=== PATIENT | female | born 1965 | race Caucasian/White ===

== ENCOUNTER → 2020-11-26 04:04 | Outpatient (CLI) | payer OTHER, SELFPAY ==
[2020-11-26 21:09] LABS: SARS-CoV-2 RNA PCR Negative
== END ==
PROVIDERS: PCP Internal Medicine; Visit Provider Clinical Nurse Specialist
DX: R05 Cough (principal); Z20.822 Contact with and (suspected) exposure to COVID-19
CPT/HCPCS: C9803; U0003; U0005

== ENCOUNTER 2021-11-24 00:09 | Day surgery (SDC) | payer OTHER, SELFPAY ==
[2021-09-12 12:50] VITALS: BMI 25.0
--- NOTE | 2021-11-06 13:20 | PC.NURSE ---
Completed patients pre-procedure phone call. Updated patient with new date and times. Patient agrees to these changes. Patient denies any changes to allergies, medications, or health history. Patient has no questions at this time.
--- NOTE | 2021-11-24 07:46 | WPDANESEPPF ---
Anes - Initial Pre Proc Eval Procedure: Operation Date: 11/24/21 09:30 Proposed Procedures p Screening Colonoscopy - Puma Ruelas MD Date/Time: 11/24/21 07:46 Surgeon: Puma Ruelas MD Pre Op Diagnosis: neoplasm screening Patient Data Age: 56 Gender: F Height: 1.6 m Weight: 64 kg Allergies Allergy/AdvReac Type Severity Reaction Status Date / Time sulfamethizole Allergy Unknown Skin Verified 11/24/21 08:35 Reaction Home Medications Medication Instructions Recorded Confirmed Type cetirizine 10 mg tablet (Zyrtec) 10 mg PO DAILY PRN Allergy Symptoms 02/01/20 09/12/21 History fluticasone propionate 50 1 spray intranasal Q12H #16 grams 11/25/20 09/12/21 Rx mcg/actuation nasal spray,suspension (Flonase Allergy Relief) cyclosporine 0.05 % eye drops in a 1 drp EACH EYE DAILY 09/12/21 09/12/21 History dropperette (Restasis) sodium sul 1.479 gram-potas ch See Rx Instructions PO .COMPLEX 09/26/21 Rx 0.188 gram-magnes sul 0.225 gram #24 tabs tablet (Sutab) Patient hx anesthesia problems: none Family hx anesthesia problems: none Results Review: All pre-operative results and documents have been reviewed as part of the pre-operative evaluation. [facility] Past Medical History Medical History Personal history of tobacco use Surgical History Surgical History H/O section Family History Family History Grandparent Diabetes mellitus Mother Patient's mother is in good health Father Patient's father is in good health Other Family history of cardiovascular disease Social History Social History Smoking status: Former smoker Tobacco type: cigarettes Second hand tobacco smoke exposure: No Smoking end date: 04/12/02 Alcohol intake: current Alcohol use details: 2x monthly Living arrangements: with family Spiritual care concerns: No Anes - Eval Final PreProcedure Day of Procedure 11/24/21 07:46 Patient weight: overweight Heart: regular rate and rhythm Lungs: clear to auscultation Airway: Mallampati scale class II Neurological: alert and oriented Last oral intake: >/= 8 hours ASA classification: II Emergent: no Anesthetic plan: proceed Anesthesia type and monitoring: general GIVS and standard monitoring Results Review: All pre-operative results and documents have been reviewed as part of the pre-operative evaluation. Informed Consent: The patient's anesthetic plan and its attendant risks and benefits were discussed with the patient/family/POA. Questions were solicited and answers provided to the satisfaction of the patient/family/POA.
[2021-11-24 08:36] VITALS: BP 116/71; PULSE 73; RESP 18; TEMP 36.2; O2SAT 100
[2021-11-24] MEDS: LACTATED RINGERS 1,000 ML 150 ML IV CONT (08:44)
--- NOTE | 2021-11-24 09:04 | PM.HPGS ---
History of Present Illness History of Present Illness Consent: Risks, benefits, and alternatives have been discussed and questions answered. Patient agrees to proceed with procedure. Chief complaint: neoplasm screening Narrative: Trina Muñoz is a 56 year old female here for first screening colonoscopy Review of Systems Constitutional: Constitutional: Denies headache(s) and Denies weakness Eyes: Eyes: Denies blurry vision ENT: Reports Normal hearing present, Denies headache(s) and Denies neck pain Cardiovascular: Cardiovascular: Denies chest pain and Denies dyspnea Respiratory: Respiratory: Denies dyspnea Gastrointestinal: Gastrointestinal: Reports no additional gastrointestinal complaints Genitourinary: Genitourinary: Denies dysuria Musculoskeletal: Musculoskeletal: Denies neck pain Integumentary/Breasts: Skin/Breast: Denies dry skin Neurologic: Reports Normal hearing present, Denies headache(s) and Denies weakness Psychiatric: Psychiatric: Denies anxiety Endocrine: Endocrine: Denies change in body appearance Hematologic/Lymphatic: Hematologic/Lymphatic: Denies easy bleeding Allergic/Immunologic: Allergic/Immunologic: Denies urticaria PMFSH Past Medical History Medical History Personal history of tobacco use Surgical History Surgical History H/O section Family History Family History Grandparent Diabetes mellitus Mother Patient's mother is in good health Father Patient's father is in good health Other Family history of cardiovascular disease Social History Social History Smoking status: Former smoker Tobacco type: cigarettes Second hand tobacco smoke exposure: No Smoking end date: 04/12/02 Alcohol intake: current Alcohol use details: 2x monthly Living arrangements: with family Spiritual care concerns: No Meds Home Medications and Allergies Home Medications Medication Instructions Recorded Confirmed Type cetirizine 10 mg tablet (Zyrtec) 10 mg PO DAILY PRN Allergy Symptoms 02/01/20 09/12/21 History fluticasone propionate 50 1 spray intranasal Q12H #16 grams 11/25/20 09/12/21 Rx mcg/actuation nasal spray,suspension (Flonase Allergy Relief) cyclosporine 0.05 % eye drops in a 1 drp EACH EYE DAILY 09/12/21 09/12/21 History dropperette (Restasis) sodium sul 1.479 gram-potas ch See Rx Instructions PO .COMPLEX 09/26/21 Rx 0.188 gram-magnes sul 0.225 gram #24 tabs tablet (Sutab) Allergies Allergy/AdvReac Type Severity Reaction Status Date / Time sulfamethizole Allergy Unknown Skin Verified 11/24/21 08:35 Reaction Vital Signs Vital Signs - 24 hr 11/24/21 08:36 Temperature 97.1 F L Pulse Rate 73 Respiratory Rate 18 Blood Pressure 116/71 Pulse Oximetry 100 Oxygen Delivery Room Air Exam Const: General: comfortable and no acute distress HENMT: General nose exam: Normal nares present Eyes: General: appearance normal, both eyes and all related structures Neck: Neck: no JVD Resp: Auscultation: clear to auscultation bilaterally Cardio: Rate: regular rate Rhythm: regular rhythm GI: Inspection: non-distended GI Palp: Yes Soft to palpation Skin: General skin exam: normal color Neuro: General: gait normal Speech: normal speech Extrem: General: normal to inspection Psych: Mental Status: mental status grossly normal Assessment and Plan Assessment and plan (1) Screening for colon cancer: Code(s): Z12.11 - Encounter for screening for malignant neoplasm of colon Status: Acute Assessment and Plan: colonoscopy
[2021-11-24 09:25] VITALS: BP 103/63; PULSE 79; RESP 16; O2SAT 100
[2021-11-24 09:35] VITALS: BP 104/77; PULSE 72; RESP 16; O2SAT 100
[2021-11-24 09:45] VITALS: BP 104/76; PULSE 66; RESP 13; O2SAT 100
== END 2021-11-24 10:03 | disposition home or self-care (01) ==
PROVIDERS: PCP Internal Medicine; Visit Provider Internal Medicine Gastroenterology
PROC: 0DJD8ZZ Inspection of Lower Intestinal Tract, Via Natural or Artificial Opening Endoscopic (ICD-10-PCS; CPT 45378; principal; 2021-11-24 09:30)
DX: Z12.11 Encounter for screening for malignant neoplasm of colon (principal); K64.8 Other hemorrhoids; Z87.891 Personal history of nicotine dependence
CPT/HCPCS: 45378; J2704; J7120

== ENCOUNTER 2023-01-14 10:40 | Emergency (ER) | payer OTHER, SELFPAY ==
--- NOTE | 2023-01-14 10:46 | ED.URI ---
HPI - URI/Sore Throat General Chief Complaint: Upper Respiratory Infection Stated Complaint: Cough,Congestion,Headache Time Seen by Provider: 01/14/23 10:46 Source: patient Mode of arrival: ambulatory Limitations: no limitations History of Present Illness HPI Narrative: Patient is a 57-year-old female who presents with cough, congestion and headache since Wednesday. Patient states cough is keeping her up at night and it is productive. She denies any fever, chills, nausea, vomiting, diarrhea, sore throat. 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 Patient has been taking [id number] Robitussin with no relief. Denies any history of smoking, asthma, bronchitis or pneumonia. Does states she has seasonal allergies but does not take any daily allergy medicine. Related Data Allergies Allergy/AdvReac Type Severity Reaction Status Date / Time sulfamethizole Allergy Unknown Skin Verified 01/14/23 10:55 Reaction Review of Systems Review of Systems: All systems reviewed & are unremarkable except as noted in HPI and below Constitutional: Constitutional: Denies body ache(s), Denies chills, Denies fatigue, Denies fever(s), Reports headache(s), Denies malaise and Denies weakness Eyes: Eyes: Denies blurry vision, Denies itchy eyes and Denies loss of vision ENT: Denies otalgia, Denies headache(s), Reports nasal congestion, Denies sinus pain and Denies sore throat Cardiovascular: Cardiovascular: Denies chest pain, Denies irregular heart rhythm and Denies dyspnea Respiratory: Respiratory: Reports cough and Denies dyspnea Gastrointestinal: Gastrointestinal: Denies abdominal pain, Denies diarrhea, Denies nausea and Denies vomiting Musculoskeletal: Musculoskeletal: Denies back pain, Denies myalgias and Denies arthralgias Integumentary/Breasts: Skin/Breast: Denies pruritus and Denies rash Neurologic: Reports headache(s), Denies loss of vision and Denies weakness Psychiatric: Psychiatric: Reports no additional psychiatric complaints Endocrine: Endocrine: Denies fatigue Allergic/Immunologic: Allergic/Immunologic: Denies itchy eyes PMFSH Past Medical History Medical History Personal history of tobacco use Surgical History Surgical History H/O section Family History Family History Grandparent Diabetes mellitus Mother Patient's mother is in good health Father Patient's father is in good health Other Family history of cardiovascular disease Social History Social History Smoking status: Former smoker Tobacco type: cigarettes Second hand tobacco smoke exposure: No Smoking end date: 04/12/02 Alcohol intake: current Alcohol use details: 2x monthly Living arrangements: with family Spiritual care concerns: No Comments At time of signature, agree with nursing past medical, surgical, social and family history. There is no relevant family history pertinent to the presenting complaint. Exam Const: General: cooperative, healthy appearing, comfortable, no acute distress and well nourished Nutritional Appearance: well nourished Orientation/consciousness: patient oriented x3 Limitations: no limitations HENMT: Head: normal to inspection, normocephalic and atraumatic Ears: hearing grossly normal bilaterally, external ears normal, TM's normal bilaterally, EAC's normal and no periauricular adenopathy Face/Nose/Sinus: Normal external nose present, Normal nasal mucous membranes and turbinates present, normal facial exam, sinuses nontender and face symmetric Face and sinus: normal facial exam, sinuses nontender and face symmetric Mouth: Yes Normal oral and palatal mucosa present, Yes lip normal, Yes tongue normal, Yes Normal salivary glands and ducts present, Yes oropharynx
[2023-01-14 10:48] VITALS: BP 97/73; PULSE 72; RESP 18; TEMP 36.5; O2SAT 99
== END 2023-01-14 11:06 | disposition home or self-care (01) ==
PROVIDERS: Emergency Provider Nurse Practitioner Family; PCP Internal Medicine
DX: J40 Bronchitis, not specified as acute or chronic (principal); Z87.891 Personal history of nicotine dependence
CPT/HCPCS: 99213; G0463

== ENCOUNTER 2023-01-20 10:34 | Emergency (ER) | payer OTHER, SELFPAY ==
--- NOTE | ~2023-01-20 | XR_ITS ---
EXAMINATION: XR chest 2V 01/20/2023 10:56 INDICATION: Cough for 11 days PROCEDURE: 2 view chest COMPARISON: 01/23/2015 FINDINGS: The lungs are clear. The cardiomediastinal silhouette is within normal limits. There are no pleural effusions. There is no pneumothorax suspected. IMPRESSION: 1: NO ACUTE CARDIOPULMONARY DISEASE. Reviewed, dictated and finalized at location B.
--- NOTE | 2023-01-20 10:43 | ED.URI ---
HPI - URI/Sore Throat General Chief Complaint: Upper Respiratory Infection Stated Complaint: Wheezing,Cough,Lethargic Time Seen by Provider: 01/20/23 10:42 Source: patient, RN notes reviewed and old records reviewed Mode of arrival: ambulatory Limitations: no limitations History of Present Illness HPI Narrative: 57 year old female who presents to express care with complaints of continued cough which is productive, wheezing with some shortness of breath with exertion,headache and fatigue. Patient was seen on the of this month for her symptoms and was prescribed Steroid, inhaler and also cough syrup but states that symptoms continue and she remains fatigued. Patient reports that she is expectorating yellowish mucous and can't get rid of cough. Patient states that she went to the nurse at her employment today and was told that she was wheezing. Initial symptoms have been since the 09 of January. MD elicited complaint: cough and other (Wheezing , fatigue) Onset (ago): day(s) (11-12 days) Consistency: constant Severity: moderate Able to tolerate fluids by mouth: Yes Exacerbating factors: exertion Associated symptoms: headache, cough, shortness of breath (exertion) and other (wheezing) Treatments prior to arrival: other (Prednisone, prescription cough medication and inhaler) Related Data Home Medications Medication Instructions Recorded Confirmed conjugated estrogens 0.625 mg/gram 0.625 mg topical DIRECTED 01/20/23 01/20/23 vaginal cream (Premarin) Allergies Allergy/AdvReac Type Severity Reaction Status Date / Time sulfamethizole Allergy Unknown Skin Verified 01/20/23 10:43 Reaction Review of Systems Review of Systems: CONSTITUTIONAL: Denies malaise, chills, sweats, or fever. EYES: Denies visual changes, redness, or discharge. ENT: Reports no rhinorrhea, congestion, sinus pain, no otalgia and no sore throat. CARDIOVASCULAR: Denies chest pain, palpitations, or edema. RESPIRATORY: Reports cough.? Denies acute dyspnea, reports wheezing, VOSS GASTROINTESTINAL: Denies abdominal pain, nausea, vomiting, diarrhea SKIN: Denies rash or itching. MUSCULOSKELETAL: Denies myalgia. NEUROLOGIC: Reports headache and fatigue All systems reviewed & are unremarkable except as noted in HPI and below PMFSH Past Medical History Medical History Eczema Personal history of tobacco use quit 2002 Surgical History Surgical History (Updated 01/20/23 @ 11:50 by Sherine Nixon NP) H/O section Hx of spinal surgery Family History Family History Grandparent Diabetes mellitus Mother Patient's mother is in good health Father Patient's father is in good health Other Family history of cardiovascular disease Social History Social History Smoking status: Former smoker Tobacco type: cigarettes Second hand tobacco smoke exposure: No Smoking end date: 04/12/02 Alcohol intake: current Alcohol use details: 2x monthly Living arrangements: with family Spiritual care concerns: No Comments At time of signature, agree with nursing past medical, surgical, social and family history. There is no relevant family history pertinent to the presenting complaint Exam Narrative: GENERAL: Well-appearing, well-nourished, and in no acute distress. HEAD: Normocephalic EYES: PERRLA, conjunctivae clear ENT: Nares clear, turbinates edematous and erythematous, clear discharge. Mucous membranes moist. TM pearly preciado with dull light reflex bilaterally; no tragal tenderness. Oropharynx erythematous without lesions. Tonsils not enlarged and without exudate, no drooling, no hoarseness, no trismus, uvula midline. NECK: Supple. No lymphadenopathy CHEST: Scattered wheezing to auscultation, breath sounds equal. Positive for wheezing,no rhonchi, rales, or stridor. No respiratory distres
[2023-01-20 10:44] VITALS: BP 99/53; PULSE 77; RESP 16; TEMP 36.5; O2SAT 100
== END 2023-01-20 11:26 | disposition home or self-care (01) ==
PROVIDERS: Emergency Provider Registered Nurse; PCP Internal Medicine
DX: J40 Bronchitis, not specified as acute or chronic (principal); Z87.891 Personal history of nicotine dependence
CPT/HCPCS: 71046; 99213; G0463

== ENCOUNTER 2023-02-18 14:57 | Outpatient (CLI) | payer OTHER, SELFPAY ==
--- NOTE | ~2023-02-18 | MM_ITS ---
EXAMINATION: MM screening [facility] BI w linda HISTORY: Screening TECHNIQUE: Craniocaudal and mediolateral oblique 3-D tomosynthesis images were obtained and synthetic 2-D images were generated. CAD analysis was submitted and interpreted. COMPARISON: No prior mammogram is available for comparison at this institution. BREAST PARENCHYMAL COMPOSITION: There are scattered areas of fibroglandular density. FINDINGS: There is a dense 7 mm mass in the right axilla. There is a cluster of indeterminate calcifi cations in the upper outer quadrant of the left breast. IMPRESSION: 1. Right breast mass involving the axilla measuring 7 mm. Clustered indeterminate left breast calcifi cations, upper outer quadrant. 2. Additional mammographic views and possible breast ultrasound are recommended. BI-RADS Category 0: Incomplete: Needs additional imaging evaluation. Reviewed, dictated and finalized at location A. ORY HELPER IMPRESSION: 1. Right breast mass involving the axilla measuring 7 mm. Clustered indetermina te left breast calcifications, upper outer quadrant. 2. Additional mammographic views and possible breast ultrasound are recommended . BI-RADS Category 0: Incomplete: Needs additional imaging evaluation.
--- NOTE | ~2023-02-18 | DEXA_ITS ---
Bone Density Report Name: JAZMIN BLANK Age: 57 Sex: Female Ethnicity: White Date of : 1965 Indication: postmenopausal; screening for osteoporosis; Referring Provider: ANNETTE, ZOFIA Virgen Study: Bone densitometry was performed. Exam Date: February 18, 2023 Accession number: [id number] Bone Density: Region BMD T-score Z-score Classification AP Spine(L1-L4) 1.157 1.0 2.1 Normal Femoral Neck (Left) 0.727 -1.1 0.0 Osteopenia Total Hip (Left) 0.939 0.0 0.7 Normal Femoral Neck (Right) 0.667 -1.6 -0.6 Osteopenia Total Hip (Right) 0.905 -0.3 0.4 Normal Total Hip Mean 0.922 -0.2 0.6 Normal World Health Organization criteria for BMD impression classify patients as: Normal (T-score at or above -1.0), Osteopenia (T-score between -1.0 and -2.5), or Osteoporosis (T-score at or below -2.5). 10-year Fracture Risk(1): Major Osteoporotic Fracture 7.1% Hip Fracture 0.6% Reported Risk Factors: [place] (), Neck BMD=0.667, BMI=25.2 (1) FRAX(R) Version 3.08. Fracture probability calculated for an untreated patient. Fracture probability may be lower if the patient has received treatment. Clinical Information Provided by Patient: Patient maximum height was 63.5 Menopause Age: 44 Drinks caffeinated beverages Onset of menses at age 14 Number of children 2 Impression: The patient has low bone mass, based on the Right Femoral Neck T-score. The patient has an estimated ten-year risk of hip fracture of 0.6% and an estimated ten-year risk of major fracture of 7.1%, based on the WHO FRAX algorithm. Discussion: BONE DENSITY IS LOW AT ONE OR MORE SKELETAL SITES. This patient's lowest T-score is low at one or more skeletal sites. It meets the World Health Organization's (WHO) criteria for ?low bone mass? (T-score between -1.0 and -2.5). The patient's 10-year risk of fracture as calculated by FRAX is less than the threshold where pharmacological therapy is recommended by the National Osteoporosis Foundation (NOF). However, all treatment decisions require clinical judgment and consideration of individual patient factors, including patient preferences, comorbidities, previous drug use, risk factors not captured in the FRAX model (e.g., frailty, falls, vitamin D deficiency, increased bone turnover, interval significant decline in bone density) and possible under or overestimation of fracture risk by FRAX. The patient should follow a healthful lifestyle (good nutrition with adequate calcium and vitamin D, and appropriate weight-bearing exercise). Follow-Up: Consider repeating this study in 2 to 3 years to reassess this patient's status, or sooner if there is some new clinical indication. Reported by: CHRIS on 02/18/2023 3:35:00 PM. Review
== END 2023-02-18 14:58 | disposition home or self-care (01) ==
PROVIDERS: PCP Internal Medicine; Visit Provider Nurse Practitioner Obstetrics & Gynecology
DX: Z12.31 Encounter for screening mammogram for malignant neoplasm of breast (principal); Z78.0 Asymptomatic menopausal state; R92.8 Other abnormal and inconclusive findings on diagnostic imaging of breast; M85.89 Other specified disorders of bone density and structure, multiple sites
CPT/HCPCS: 77063; 77067; 77080

== ENCOUNTER 2023-08-06 12:04 | Emergency (ER) | payer OTHER, SELFPAY ==
--- NOTE | ~2023-08-06 | US_ITS ---
EXAMINATION:US venous doppler LE RT INDICATION:Right calf pain TECHNIQUE: Multiple grayscale, color flow and Doppler images of the right lower extremity deep venous systems were obtained and reviewed. COMPARISON:No prior studies FINDINGS: The common femoral, superficial femoral and popliteal veins demonstrate normal respiratory variation, augmentation and compressibility. Color flow is also seen within the posterior tibial, pe roneal, greater saphenous and profunda veins. IMPRESSION: 1: No lower extremity deep venous thrombosis. Reviewed, dictated and finalized at location B.
--- NOTE | ~2023-08-06 | XR_ITS ---
EXAMINATION: XR knee RT 3V DATE: 08/06/2023 12:34 INDICATION: Chronic right knee pain. TECHNIQUE: 3 views of right knee were obtained. COMPARISON: None. FINDINGS: Bone alignment is normal. No fracture. There is mild tricompartmental osteoarthritis charac terized by tiny osteophytes. No knee joint effusion. IMPRESSION: 1. Mild right knee osteoarthritis. Reviewed, dictated and finalized at location A.
[2023-08-06 12:12] VITALS: BP 102/71; PULSE 76; RESP 18; TEMP 36.6; O2SAT 97
--- NOTE | 2023-08-06 13:30 | ED.LOWEXIN ---
HPI - Extremity Injury (Lower) General Chief Complaint: Extremity Injury, Lower Stated Complaint: knee pain Time Seen by Provider: 08/06/23 12:14 History of Present Illness HPI Narrative: Patient is a 58 year old female with history of chronic left sided sciatic back pain here with right knee pain. She notes pain has been intermittent for the last month. She saw chiropractor 3-4 weeks ago who performed an x-ray and told her that her knee had ?shifted?. She states that they performed a aggressive manipulation maneuver by a hitting the knee strongly and had some mild relief of pain immediately returned upon walking. She denies any falls. Her back pain is not any worse than usual. She notes that the pain currently is located in her knee, worse with walking and radiates down into her calf. No prior surgeries on this knee. She has not taken tylenol or ibuprofen for this pain today. She has been wearing a knee brace at home which seems to help somewhat. No recent travel, no history of PE or DVT, no recent surgeries. No fever, chills, color change of her leg. Related Data Home Medications Medication Instructions Recorded Confirmed conjugated estrogens 0.625 mg/gram 0.625 mg topical DIRECTED 01/20/23 04/15/23 vaginal cream (Premarin) Allergies Allergy/AdvReac Type Severity Reaction Status Date / Time sulfamethizole Allergy Unknown Skin Verified 08/06/23 12:05 Reaction Review of Systems Review of Systems: All systems reviewed & are unremarkable except as noted in HPI and below PMFSH Past Medical History Medical History Eczema Personal history of tobacco use quit 2002 Surgical History Surgical History (Updated 01/20/23 @ 11:50 by Sherine Nixon NP) H/O section Hx of spinal surgery Family History Family History Grandparent Diabetes mellitus Mother Patient's mother is in good health Father Patient's father is in good health Other Family history of cardiovascular disease Social History Social History (Updated 04/14/23 @ 15:20 by Zee Melgar CMA) Smoking status: Former smoker Tobacco type: cigarettes Second hand tobacco smoke exposure: No Smoking end date: 04/12/02 Alcohol intake: current Alcohol use details: 2x monthly Do You Feel Safe in your Home?: Yes Lack of Transportation: No Lack of Food: Never True Current Housing: I Have Housing Concerned About Future Housing: No Difficulty Paying Gas/Electric Bills: YES Difficulty Paying for Meds: No Currently Unemployed: No Education: Associate Degree Difficulty w/ Childcare or Family Care: No Living arrangements: with family Spiritual care concerns: No Exam Narrative: GENERAL: Well-appearing, well-nourished, and in no acute distress. HEAD: Normocephalic, atraumatic. EYES: PERRLA and EOMI. ENT: Nares clear. Mucous membranes moist. NECK: Supple. CHEST: Clear to auscultation. No respiratory distress. HEART: Regular rate and rhythm. Normal peripheral pulses. ABDOMEN: Soft, nontender, nondistended. EXTREMITIES: Bilateral hips nontender. Normal range of motion of bilateral hips. Patient has no knee tenderness at rest however pain is elicited with passive and active range of motion with flexion of the knee. She endorses the pain is located over the anterior portion of the knee and has mild reduced range of motion due to this pain. She additionally has some calf tenderness on this leg. Strong DP pulse present with normal sensation and strength of the leg. Normal color and perfusion of the leg appreciated. SKIN: Warm, dry, no rash. NEURO: No focal deficits. Alert and oriented x3. PSYCH: Normal mood and affect. Course Course Emergency Course: Chart review performed. Patient is here with right knee pain. She was told by a chiropractor that it looks off . Triage vitals normal. Patient seen evaluated, nontoxic appearing.
[2023-08-06] MEDS: ACETAMINOPHEN 500 MG TABLET 1000 MG PO (14:04)
[2023-08-06 15:01] VITALS: BP 150/90; PULSE 63; RESP 18; O2SAT 98
== END 2023-08-06 15:02 | disposition home or self-care (01) ==
PROVIDERS: Emergency Provider Student in an Organized Health Care Education/Training Program; PCP Internal Medicine
DX: M25.561 Pain in right knee (principal); Z87.891 Personal history of nicotine dependence; M17.11 Unilateral primary osteoarthritis, right knee
CPT/HCPCS: 73562; 93971; 99284; A9270

== ENCOUNTER 2023-09-29 09:35 | Outpatient (CLI) | payer OTHER, SELFPAY ==
[2023-09-29 12:45] LABS: Basophils Absolute Auto 0.1 K/mm3 (0.0-0.1); Basophils Percent Auto 1.5 % (0.2-1.2); Eosinophils Absolute Auto 0.1 K/mm3 (0-0.3); Eosinophils Percent Auto 2.4 % (0-4.4); Hematocrit 36.1 % (37.0-47.0); Hemoglobin 11.9 g/dL (12.0-15.0); Immature Granulocyte Absolute 0.02 K/mm3 (0.00-0.031); Immature Granulocyte Percent A 0.4 % (0-0.5); Lymphocytes Absolute Auto 1.93 K/mm3 (0.9-3.2); Lymphocytes Percent Auto 42.3 % (18.3-44.2); Mean Corpuscular Hemoglobin 30.9 pg (26-34); Mean Corpuscular Volume 93.8 fl (80-100); Mean Platelet Volume 11.7 fl (7.4-10.4); Monocytes Absolute Auto 0.3 K/mm3 (0.1-0.6); Monocytes Percent Auto 6.6 % (2.6-8.5); Neutrophils Absolute Auto 2.1 K/mm3 (1.3-6.7); Neutrophils Percent Auto 46.8 % (45.5-73.1); Platelet Count Result 238 k/mm3 (150-375); Red Blood Count 3.85 M/mm3 (4.2-5.4); Red Cell Distribution Width 14.1 % (11.5-14.5); White Blood Count 4.6 K/mm3 (4.5-10.0)
[2023-09-29 13:10] LABS: Alanine Aminotransferase 15 U/L (6-35); Albumin Level 4.4 g/dL (3.5-5.1); Alkaline Phosphatase 50 U/L (38-126); Anion Gap 6 mmol/L (4-12); Aspartate Amino Transferase 40 U/L (14-36); Bilirubin,Total 0.9 mg/dL (0.2-1.3); Blood Urea Nitrogen 18 mg/dL (7-17); Calcium 9.2 mg/dL (8.4-10.2); Carbon Dioxide 26 mmol/L (22-30); Chloride 108 mmol/L (98-107); Cholesterol 267 mg/dL (0-200); Estimated Glomerular Filt Rate > 60; Glucose 75 mg/dL (65-110); HDL Direct 99 mg/dL; Potassium 4.2 mmol/L (3.4-5.0); Sodium 140 mmol/L (137-145); Triglycerides 51 mg/dL (<150)
[2023-09-29 13:21] LABS: LDL Cholesterol Direct 132 mg/dL
[2023-09-29 14:21] LABS: Vitamin D 25 Hydroxy 36.5 ng/mL
== END 2023-09-29 09:36 | disposition home or self-care (01) ==
PROVIDERS: PCP Internal Medicine
DX: Z13.220 Encounter for screening for lipoid disorders (principal); E55.9 Vitamin D deficiency, unspecified; Z13.228 Encounter for screening for other metabolic disorders
CPT/HCPCS: 36415; 80053; 80061; 82306; 85025

== ENCOUNTER 2025-03-20 14:03 | Emergency (ER) | payer OTHER, SELFPAY ==
[2025-03-20 14:17] VITALS: BP 106/54; PULSE 72; RESP 16; TEMP 35.9; O2SAT 100
--- NOTE | 2025-03-20 14:24 | ED.URI ---
HPI - URI/Sore Throat General Chief Complaint: Upper Respiratory Infection Stated Complaint: COUGH/CONGESTION/DIARRHEA Time Seen by Provider: 03/20/25 14:15 Source: patient, RN notes reviewed and old records reviewed Mode of arrival: ambulatory Limitations: no limitations History of Present Illness HPI Narrative: 59-year-old female presents to the [facility] with cold symptoms, headache, S stuffy nose, cough, drainage since Wednesday. Patient reports that she started with some diarrhea today. Denies any abdominal pain, chest pain, shortness of breath. Denies chills or fevers. States for the sinus congestion she has taken mucus relief an Advil. No treatment for the diarrhea. tolerating fluids without issue Onset (ago): day(s) (2-3) Treatments prior to arrival: cold medicine Related Data Home Medications ?Medication ?Instructions ?Recorded ?Confirmed ?Last Taken ?Type conjugated estrogens 0.625 mg/gram 0.625 mg topical DIRECTED 01/20/23 08/31/23 Unknown History vaginal cream (Premarin) cyclosporine 0.05 % eye drops in a drp EACH EYE PRN 08/31/23 08/31/23 Unknown History dropperette Allergies Allergy/AdvReac Type Severity Reaction Status Date / Time sulfamethizole Allergy Unknown Skin Verified 03/20/25 14:21 Reaction prednisone AdvReac Intermediate hair loss Verified 03/20/25 14:21 Review of Systems Review of Systems: All systems reviewed & are unremarkable except as noted in HPI and below Constitutional: Constitutional: Reports no additional constitutional complaints ENT: Reports as per HPI and Reports sore throat Cardiovascular: Cardiovascular: Reports no additional cardiovascular complaints, Denies chest pain and Denies dyspnea Respiratory: Respiratory: Reports as per HPI, Denies chest congestion, Reports cough and Denies dyspnea Gastrointestinal: Gastrointestinal: Reports as per HPI, Denies abdominal pain, Reports diarrhea, Denies nausea and Denies vomiting Musculoskeletal: Musculoskeletal: Reports no additional musculoskeletal complaints Integumentary/Breasts: Skin/Breast: Reports system reviewed and no additional complaints, except as docu PMFSH Past Medical History Medical History Eczema Personal history of tobacco use quit 2002 Surgical History Surgical History Hx of spinal surgery H/O section Family History Family History Grandparent Diabetes mellitus Mother Patient's mother is in good health Father Patient's father is in good health Other Family history of cardiovascular disease Social History Social History Smoking status: Former smoker Tobacco type: cigarettes Second hand tobacco smoke exposure: No Smoking end date: 04/12/02 Alcohol intake: current Alcohol use details: 2x monthly Lack of Transportation: No Lack of Food: Never True Current Housing: I Have Housing Concerned About Future Housing: No Difficulty Paying Gas/Electric Bills: YES Difficulty Paying for Meds: No Currently Unemployed: No Education: Associate Degree Difficulty w/ Childcare or Family Care: No Living arrangements: with family Spiritual care concerns: No Comments At the time of my signature, I reviewed and agree with the nursing past medical, surgical, social, and family history. There is no relevant family history pertinent to the patient complaint. Exam Const: General: cooperative, healthy appearing, comfortable, no acute distress, well developed, alert and well nourished Nutritional Appearance: well nourished Orientation/consciousness: patient oriented x3 Limitations: no limitations HENMT: Head: normal to inspection Ears: hearing grossly normal bilaterally, external ears normal, TM's normal bilaterally, EAC's normal and mastoids normal Face and sinus: normal facial exam and sinuses nontender Mouth: Yes Normal oral and palatal mucosa present, Yes lip normal, Yes tongue normal and Yes moist mucous membranes Throat: posterior oropharynx normal, uvula midline, postnasal drainage and no uvular edema Eyes: General: appearance normal, both eyes and all related structures Alignment and Position: alignment normal Neck: Neck: normal visual inspection, full ROM, no lymphadenopathy and no meningeal signs Chest: Chest palpation & inspection: normal inspection of the chest Resp: Effort & Inspection: normal respiratory effort and able to speak in complete sentences Auscultation: clear to auscultation bilaterally, no crackles, no rales, no rhonchi and no wheezes Cardio: Rate: regular rate GI: GI Palp: No abdominal tenderness Skin: General skin exam: normal color and no rashes or lesions noted Neuro: General: patient oriented x3, gait normal, moves all extremities and no meningeal signs Cognition (Neuro): normal cognition Speech: normal speech Gait exam (Neuro): Normal gait present Extrem: General: normal to inspection, full ROM, capillary refill normal and normal gait Psych: Appearance: grossly normal and well kempt Mental Status: mental status grossly normal Speech and movement: Normal speech and movement present and Clear speech present Affect: normal affect Attitude: cooperative Course Course Level of Care: Express Care Visit Vital Signs Vital signs: Vital Signs Temperature 96.7 F L 03/20/25 14:17 Pulse Rate 72 03/20/25 14:17 Respiratory Rate 16 03/20/25 14:17 Blood Pressure 106/54 L 03/20/25 14:17 Pulse Oximetry 100 03/20/25 14:17 Temperature 96.7 F L 03/20/25 14:17 Pulse Rate 72 03/20/25 14:17 Respiratory Rate 16 03/20/25 14:17 Blood Pressure 106/54 L 03/20/25 14:17 Pulse Oximetry 100 03/20/25 14:17 reviewed MDM MDM Narrative Medical decision making narrative: patient with 3 day history of URI symptoms, started with diarrhea today. Flu COVID negative. No acute findings other than postnasal drainage noted on exam. Patient is nontoxic and vitals are stable. Patient is appropriate for outpatient treatment with close follow-up requesting a work note Discharge instructions reviewed with patient, as well as provided in writing per nursing staff. The instructions also include specific and strict return/GO TO THE ER as well as f/u information. All questions have been answered, and the patient deny any further questions with discharge and discharge plan. Some parts of this dictation were generated by voice recognition software and may contain typographical and/or grammatical inaccuracies. Differential Diagnosis Differential Diagnosis: Differential diagnostic considerations for upper respiratory infection include upper respiratory infection, croup, otitis media, sinusitis, viral infection, bronchitis, influenza, pharyngitis, strep, uvulitis.? Lab Data Labs: Lab Results 03/20/25 Range/Units 14:41 POC Influenza A Ag Negative (Negative) POC Influenza B Ag Negative (Negative) POC SARS CoV-2 Ag Negative (Negative) reviewed Discharge Plan Discharge Clinical Impression: Upper respiratory infection Qualifiers: URI type: unspecified viral URI Qualified Code(s): J06.9 - Acute upper respiratory infection, unspecified Sinusitis Qualifiers: Sinusitis location: pansinusitis Chronicity: acute Recurrence: not specified as recurrent Qualified Code(s): J01.40 - Acute pansinusitis, unspecified Patient Disposition: Home Condition: Stable Instructions: Sinusitis (ED), Viral Syndrome (ED), Postnasal Drip (DC) Additional Instructions: Your rapid COVID test were negative Your rapid flu test was negative Your symptoms are likely due to a viral illness, which is not treated with antibiotics. Typically viral infections last 7-10 days, can linger for couple of weeks. It is very important to treat your symptoms. Drink plenty of water, Gatorade, Pedialyte, ice pops or Jell-O. -Alternate Tylenol and Motrin per package directions for fever or pain. You can alternate every 4 hours -Antihistamine medication such as Zyrtec/Claritin during the day can help improve symptoms. -doing daily nasal irrigations can help relieve pressure your sinuses. Things like a Neti pot -Use Flonase twice a day for 5 days then daily to help reduce the inflammation and dry up your sinuses. -You can also use Mucinex. Be sure to drink plenty of water with this medication at least 8 ounces with every dose and it is important to drink 8 to 10 glasses of water per day. Water is a natural decongestant -Eat and drink things that are easy to swallow, like tea or soup, or popsicles. -Oral rinses such as: Salt water gargles and/or may use topical anesthetic (eg. Chloraseptic spray) or lozenges to relieve dryness or throat pain). -Frequent hand washing or hand enterprise systems administrator is one of the best ways to prevent spread of infection. -Using a vaporizer or humidifier at night will also help thin secretions and help with coughing up phlegm. -Follow up with primary care provider in 7-10 days if condition is not improving - For new or worsening symptoms go directly to the nearest ER Patient Language: Hungarian Prescriptions: No Action (DME) Aerochamber MV Spacer See Rx Instructions .Route Qty: 1 0RF Rx Instructions: As directed albuterol sulfate 90 mcg/actuation HFA aerosol inhaler 2 puff inhalation QID PRN (Reason: shortness of breath or wheezing) Qty: 6.7 0RF promethazine-DM 6.25-15 mg/5 mL syrup 5 ml PO Q4-6H PRN (Reason: cough) Qty: 118 0RF Premarin 0.625 mg/gram cream 0.625 mg topical DIRECTED cyclosporine 0.05 % dropperette EACH EYE PRN Follow-up/Referrals: Angel Casanova, [Primary Care Provider, Internal Medicine] Stand Alone Forms: Work/School Release IP Time of Disposition: 14:36
[2025-03-20 14:45] LABS: EDCOVIDSCREEN Negative (Negative); EDINFLUASCREEN Negative (Negative); EDINFLUBSCREEN Negative (Negative)
== END 2025-03-20 14:41 | disposition home or self-care (01) ==
PROVIDERS: Emergency Provider Nurse Practitioner; PCP Internal Medicine
DX: J06.9 Acute upper respiratory infection, unspecified (principal); J01.40 Acute pansinusitis, unspecified; Z20.822 Contact with and (suspected) exposure to COVID-19; Z87.891 Personal history of nicotine dependence
CPT/HCPCS: 87426; 87804; 99212; G0463